=== PATIENT | male | born 1960 | race Hispanic/Latino ===

== ENCOUNTER 2024-07-06 18:22 | Emergency (ER) | payer BC ==
[~2024-07-06] VITALS: Ht 190.5 cm; Wt 113.4 kg
[2024-07-06 19:29] LABS: CORONAVIRUS COVID-19 AG NEGATIVE (NEGATIVE); INFLUENZA A AG NEGATIVE (NEGATIVE); INFLUENZA B AG NEGATIVE (NEGATIVE); STREPTOCOCCUS GRP A ANTIGEN NEGATIVE (NEGATIVE)
[2024-07-06 20:30] VITALS: PULSE 76; RESP 17; TEMP 98.1; O2SAT 96
[2024-07-06] MEDS ORDERED: MEDROL4 M2 PO (20:32)
== END 2024-07-06 20:42 | disposition home or self-care (01) ==
LOC: ER 18:44
DX: R05.9 Cough, unspecified (principal); J06.9 Acute upper respiratory infection, unspecified; R09.89 Other specified symptoms and signs involving the circulatory and respiratory systems; Z11.52 Encounter for screening for COVID-19
CPT/HCPCS: 71045; 83518; 87070; 99283